=== PATIENT | male | born 1960 | race Caucasian/White ===

== ENCOUNTER 2020-04-13 05:41 | Observation (INO) ==
[2020-04-13 06:24] LABS: Basophils # 0.1 K/mcL (0.0-0.2); Basophils % 0.5 %; Eosinophils # 0.1 K/mcL (0.0-0.6); Eosinophils % 0.5 %; Hematocrit 48.9 % (37.5-50.1); Hemoglobin 15.8 g/dL (12.9-16.9); Immature Granulocytes % 0.6 % (0-4); Lymphocytes # 1.8 K/mcL (0.6-4.6); Lymphocytes % 13.9 %; Mean Corpuscular HGB Conc 32.3 g/dL (31.6-35.5); Mean Corpuscular Volume 92.8 fL (83.0-100.0); Mean Platelet Volume 9.6 fL (9.4-12.4); Monocytes # 0.6 K/mcL (0.0-1.3); Monocytes % 4.7 %; Neutrophils # 10.5 K/mcL (1.6-8.9); Platelet Count 406 K/mcL (140-400); Red Blood Count 5.27 M/mcL (4.19-5.50); Red Cell Distribution Width 15.4 % (11.5-14.5); Segmented Neutrophils % 79.8 %; White Blood Count 13.2 K/mcL (4.3-11.1)
[2020-04-13 06:46] LABS: Alanine Aminotransferase 18 Units/L (7-52); Albumin 4.1 g/dL (3.5-5.7); Albumin/Globulin Ratio 1.2 (1.1-2.2); Alkaline Phosphatase 132 Units/L (34-104); Aspartate Amino Transferase 18 Units/L (13-39); BUN/Creatinine Ratio 17 (6-26); Bilirubin,Total 0.3 mg/dL (0.3-1.0); Blood Urea Nitrogen 20 mg/dL (6-20); Calcium 9.5 mg/dL (8.6-10.3); Carbon Dioxide 23 mEq/L (23-29); Chloride 105 mEq/L (98-107); Globulin 3.5 g/dL (2.4-3.5); Glucose 184 mg/dL (70-105); Osmolality,Calculated 295 (280-300); Potassium 3.9 mEq/L (3.5-5.1); Sodium 139 mEq/L (136-145); Total Protein 7.6 g/dL (6.4-8.9); eGFR For African Americans > 60 (> 60); eGFR For Non-African Americans > 60 (> 60)
[2020-04-13 07:19] LABS: Amphetamine Screen,Urine Negative ng/mL (Cutoff=1000); Barbiturate Screen,Urine Negative ng/mL (Cutoff=200)
[2020-04-13 07:20] LABS: Benzodiazepines Screen,Urine Negative ng/mL (Cutoff=300); Cannabinoid Screen,Urine Positive ng/mL (Cutoff = 50); Cocaine Screen,Urine Negative ng/mL (Cutoff= 300); Opiate Screen,Urine Negative ng/mL (Cutoff=300); Phencyclidine Screen,Urine Negative ng/mL (Cutoff=25)
[2020-04-13 07:51] LABS: Bacteria,Urine Few per hpf (None-Few); Bilirubin,Urine Negative (Negative); Blood,Urine Large (Negative); Clarity,Urine Clear (Clear); Color,Urine Light-Yellow (Yellow); Glucose,Urine (UA) Normal (Normal); Hyaline Casts,Urine Few per lpf (None Seen); Ketones,Urine Negative (Negative); Leukocyte Esterase,Urine Negative (Negative); Mucus,Urine Few per lpf (None-Few); Nitrite,Urine Negative (Negative); Protein,Urine >=300 mg/dL (Neg-Trace); Squamous Epithelial Cell,Urine Few per hpf (None-Few); Urobilinogen,Urine Normal (Normal)
[2020-04-13] MEDS ORDERED: Naloxone 0.4 MG/ML INJ IVP PRN (10:50)
[2020-04-13] MEDS ORDERED: Ondansetron ODT 4 MG TAB.RAPDIS SL PRN (10:50)
[2020-04-13] MEDS ORDERED: *HR* LORazepam 2 MG/ML VIAL IVP PRN (10:55)
[2020-04-13 11:19] LABS: Magnesium 2.2 mg/dL (1.6-2.6); Phosphorous 1.6 mg/dL (2.7-4.5)
[2020-04-13] MEDS ORDERED: Potassium Phosphate 44 MEQ in 0.9 % Sodium Chloride 250 ML IVPB ONE (11:45)
[2020-04-13] MEDS ORDERED: levETIRAcetam 1,000 MG in 0.9 % Sodium Chloride 100 ML IVPB ONE (15:43)
[2020-04-14 02:09] LABS: Basophils % 0.4 %; Eosinophils # 0.1 K/mcL (0.0-0.6); Eosinophils % 1.2 %; Hematocrit 44.1 % (37.5-50.1); Immature Granulocytes % 0.4 % (0-4); Lymphocytes # 2.1 K/mcL (0.6-4.6); Lymphocytes % 19.6 %; Mean Corpuscular HGB Conc 31.7 g/dL (31.6-35.5); Mean Corpuscular Volume 91.3 fL (83.0-100.0); Mean Platelet Volume 9.6 fL (9.4-12.4); Monocytes # 1.1 K/mcL (0.0-1.3); Monocytes % 10.1 %; Neutrophils # 7.3 K/mcL (1.6-8.9); Platelet Count 341 K/mcL (140-400); Red Blood Count 4.83 M/mcL (4.19-5.50); Red Cell Distribution Width 15.3 % (11.5-14.5); Segmented Neutrophils % 68.3 %; White Blood Count 10.6 K/mcL (4.3-11.1)
[2020-04-14 02:24] LABS: BUN/Creatinine Ratio 16 (6-26); Blood Urea Nitrogen 16 mg/dL (6-20); Calcium 8.7 mg/dL (8.6-10.3); Carbon Dioxide 24 mEq/L (23-29); Chloride 106 mEq/L (98-107); Glucose 109 mg/dL (70-105); Osmolality,Calculated 288 (280-300); Potassium 3.9 mEq/L (3.5-5.1); Sodium 138 mEq/L (136-145); eGFR For African Americans > 60 (> 60); eGFR For Non-African Americans > 60 (> 60)
[2020-04-14 11:47] VITALS: BP 144/80
[2020-04-14] MEDS ORDERED: lisinopriL 5 MG TABLET PO SCH (12:00)
[2020-04-14] MEDS ORDERED: levETIRAcetam 250 MG TABLET PO SCH (18:00)
== END 2020-04-14 13:05 | disposition home or self-care (01) ==
LOC: EMEROOARM 05:41 → 3BNU 05:41 → SUATTDRO 08:59 → 3BNU 10:28
PROVIDERS: ADMIT Family Medicine; ATTEND Internal Medicine

== ENCOUNTER 2020-06-16 15:29 | Observation (INO) ==
[2020-06-16] MEDS ORDERED: *HR* Heparin 5,000 UNIT/ML VIAL IVP ONE (16:51)
[2020-06-16] MEDS ORDERED: *HR* Heparin 5,000 UNIT/ML VIAL IVP PRN ×2 (16:51)
[2020-06-16] MEDS ORDERED: *HR* HYDROmorphone (PF) 1 MG/ML SYRINGE IVP ONE (16:57)
[2020-06-16] MEDS ORDERED: Ondansetron ODT 4 MG TAB.RAPDIS SL PRN (17:30)
[2020-06-16] MEDS: Heparin 25,000UNIT/250ML 1/2NS 25,000 UNIT/250 ML IV.SOLN IVC SCH (17:30)
[2020-06-16] MEDS ORDERED: Naloxone 0.4 MG/ML INJ IVP PRN (17:30)
[2020-06-16 18:21] LABS: BUN/Creatinine Ratio 25 (6-26); Blood Urea Nitrogen 27 mg/dL (6-20); Calcium 9.2 mg/dL (8.6-10.3); Carbon Dioxide 25 mEq/L (23-29); Chloride 105 mEq/L (98-107); Glucose 89 mg/dL (70-105); Osmolality,Calculated 291 (280-300); Potassium 4.3 mEq/L (3.5-5.1); Sodium 138 mEq/L (136-145); eGFR For African Americans > 60 (> 60); eGFR For Non-African Americans > 60 (> 60)
[2020-06-16 18:23] LABS: Basophils # 0.1 K/mcL (0.0-0.2); Basophils % 0.6 %; Eosinophils # 0.4 K/mcL (0.0-0.6); Eosinophils % 3.5 %; Hematocrit 45.8 % (37.5-50.1); Hemoglobin 14.8 g/dL (12.9-16.9); Immature Granulocytes % 0.5 % (0-4); Lymphocytes # 2.4 K/mcL (0.6-4.6); Lymphocytes % 21.4 %; Mean Corpuscular HGB Conc 32.3 g/dL (31.6-35.5); Mean Corpuscular Hemoglobin 29.7 pg (28.0-33.3); Mean Corpuscular Volume 91.8 fL (83.0-100.0); Mean Platelet Volume 9.7 fL (9.4-12.4); Monocytes # 1.1 K/mcL (0.0-1.3); Monocytes % 9.9 %; Neutrophils # 7.1 K/mcL (1.6-8.9); Platelet Count 503 K/mcL (140-400); Red Blood Count 4.99 M/mcL (4.19-5.50); Red Cell Distribution Width 15.5 % (11.5-14.5); Segmented Neutrophils % 64.1 %; White Blood Count 11.1 K/mcL (4.3-11.1)
[2020-06-16] MEDS: *HR* OxyCODONE Immed Rel 5 MG TABLET PO PRN (19:42)
[2020-06-17] MEDS ORDERED: Acetaminophen IV 1,000 MG/100 ML BAG IVPB ONE (00:05)
[2020-06-17 01:31] LABS: Basophils # 0.1 K/mcL (0.0-0.2); Basophils % 0.5 %; Eosinophils # 0.4 K/mcL (0.0-0.6); Eosinophils % 3.9 %; Hematocrit 45.2 % (37.5-50.1); Hemoglobin 14.3 g/dL (12.9-16.9); Immature Granulocytes % 0.5 % (0-4); Lymphocytes # 2.9 K/mcL (0.6-4.6); Lymphocytes % 29.3 %; Mean Corpuscular HGB Conc 31.6 g/dL (31.6-35.5); Mean Corpuscular Hemoglobin 28.7 pg (28.0-33.3); Mean Corpuscular Volume 90.8 fL (83.0-100.0); Mean Platelet Volume 9.7 fL (9.4-12.4); Monocytes # 1.2 K/mcL (0.0-1.3); Monocytes % 11.8 %; Neutrophils # 5.4 K/mcL (1.6-8.9); Platelet Count 524 K/mcL (140-400); Red Blood Count 4.98 M/mcL (4.19-5.50); Red Cell Distribution Width 15.6 % (11.5-14.5)
[2020-06-17 01:35] LABS: BUN/Creatinine Ratio 21 (6-26); Blood Urea Nitrogen 25 mg/dL (6-20); Calcium 9.1 mg/dL (8.6-10.3); Carbon Dioxide 25 mEq/L (23-29); Chloride 104 mEq/L (98-107); Glucose 86 mg/dL (70-105); Osmolality,Calculated 290 (280-300); Potassium 4.2 mEq/L (3.5-5.1); Sodium 138 mEq/L (136-145); eGFR For African Americans > 60 (> 60); eGFR For Non-African Americans > 60 (> 60)
[2020-06-17] MEDS: *HR* OxyCODONE Immed Rel 5 MG TABLET PO PRN ×2 (02:07→09:10)
[2020-06-17] MEDS ORDERED: levETIRAcetam 250 MG TABLET PO SCH (09:00)
[2020-06-17] MEDS ORDERED: lisinopriL 5 MG TABLET PO SCH (09:00)
[2020-06-17] MEDS: Heparin 25,000UNIT/250ML 1/2NS 25,000 UNIT/250 ML IV.SOLN IVC SCH (09:11)
[2020-06-17 10:53] VITALS: BP 143/79
[2020-06-17] MEDS ORDERED: *HR* Rivaroxaban 15 MG TABLET PO ONE (12:00)
== END 2020-06-17 12:30 | disposition home or self-care (01) ==
LOC: EMEROOARM 15:29 → 2ANU 15:29
PROVIDERS: ADMIT Internal Medicine; ATTEND Internal Medicine

== ENCOUNTER 2020-06-29 18:28 | Inpatient (IN) ==
[2020-06-29] MEDS ORDERED: *HR* FentaNYL (PF) 100 MCG/2 ML VIAL IVP ONE ×2 (18:59→20:03)
[2020-06-29 19:40] LABS: Basophils # 0.1 K/mcL (0.0-0.2); Basophils % 0.5 %; Eosinophils # 0.3 K/mcL (0.0-0.6); Eosinophils % 2.4 %; Hematocrit 48.5 % (37.5-50.1); Hemoglobin 15.8 g/dL (12.9-16.9); Immature Granulocytes % 0.4 % (0-4); Lymphocytes # 2.2 K/mcL (0.6-4.6); Lymphocytes % 16.8 %; Mean Corpuscular HGB Conc 32.6 g/dL (31.6-35.5); Mean Corpuscular Hemoglobin 29.5 pg (28.0-33.3); Mean Corpuscular Volume 90.5 fL (83.0-100.0); Mean Platelet Volume 9.7 fL (9.4-12.4); Monocytes # 1.2 K/mcL (0.0-1.3); Monocytes % 9.3 %; Neutrophils # 9.3 K/mcL (1.6-8.9); Platelet Count 454 K/mcL (140-400); Red Blood Count 5.36 M/mcL (4.19-5.50); Red Cell Distribution Width 15.2 % (11.5-14.5); Segmented Neutrophils % 70.6 %; White Blood Count 13.1 K/mcL (4.3-11.1)
[2020-06-29 19:57] LABS: BUN/Creatinine Ratio 16 (6-26); Blood Urea Nitrogen 23 mg/dL (6-20); Carbon Dioxide 24 mEq/L (23-29); Chloride 99 mEq/L (98-107); Creatine Kinase 146 Units/L (30-223); Glucose 101 mg/dL (70-105); Osmolality,Calculated 284 (280-300); Potassium 4.2 mEq/L (3.5-5.1); Sodium 135 mEq/L (136-145); eGFR For African Americans > 60 (> 60); eGFR For Non-African Americans 51 (> 60)
[2020-06-29 20:00] LABS: INR 1.3; Prothrombin Time 15.1 Seconds (9.4-12.1)
[2020-06-29] MEDS ORDERED: Isovue-370 500 ML BOTTLE IVP ONE (20:24)
[2020-06-29] MEDS ORDERED: *HR* Heparin 5,000 UNIT/ML VIAL IVP PRN ×2 (21:48)
[2020-06-29] MEDS ORDERED: *HR* Heparin 5,000 UNIT/ML VIAL IVP ONE (21:48)
[2020-06-29] MEDS ORDERED: Heparin 25,000UNIT/250ML 1/2NS 25,000 UNIT/250 ML IV.SOLN IVC SCH ×2 (22:00)
[2020-06-29 22:17] LABS: Hematocrit 46.3 % (37.5-50.1); Hemoglobin 15.2 g/dL (12.9-16.9); Mean Corpuscular HGB Conc 32.8 g/dL (31.6-35.5); Mean Corpuscular Hemoglobin 29.1 pg (28.0-33.3); Mean Corpuscular Volume 88.7 fL (83.0-100.0); Mean Platelet Volume 9.5 fL (9.4-12.4); Platelet Count 431 K/mcL (140-400); Red Blood Count 5.22 M/mcL (4.19-5.50); Red Cell Distribution Width 15.3 % (11.5-14.5); White Blood Count 13.3 K/mcL (4.3-11.1)
[2020-06-29] MEDS ORDERED: Morphine Sulfate 2 MG/ML SYRINGE IVP ONE (22:29)
[2020-06-29] MEDS ORDERED: Vancomycin 1,000 MG VIAL ONE (22:35)
[2020-06-29] MEDS ORDERED: Lidocaine 1% 0 ML ONE (22:35)
[2020-06-29] MEDS ORDERED: Lidocaine 1% 20 ML MDV ONE (22:35)
[2020-06-29] MEDS ORDERED: Heparin 1,000 UNITS/500 mL 500 ML ONE (22:35)
[2020-06-29] MEDS ORDERED: Ondansetron 4 MG/2 ML VIAL ONE (22:48)
[2020-06-29] MEDS ORDERED: *HR* Succinylcholine 200 MG/10 ML VIAL IVP ONE (22:48)
[2020-06-29] MEDS ORDERED: *HR* Rocuronium Bromide 50 MG/5 ML VIAL ONE (22:48)
[2020-06-29] MEDS ORDERED: *HR* FentaNYL (PF) 100 MCG/2 ML VIAL ONE (22:48)
[2020-06-29] MEDS ORDERED: *HR* Midazolam HCl 2 MG/2 ML VIAL ONE (22:48)
[2020-06-29] MEDS ORDERED: *HR* Propofol 200 MG/20 ML VIAL IVP ONE (22:48)
[2020-06-29] MEDS ORDERED: Lidocaine -MPF 2% 2 ML VIAL ONE (22:50)
[2020-06-29] MEDS ORDERED: Ondansetron 4 MG/2 ML VIAL IVP PRN ×2 (23:22→23:56)
[2020-06-29] MEDS ORDERED: Acetaminophen 325 MG TABLET PO PRN (23:22)
[2020-06-29] MEDS ORDERED: Naloxone 0.4 MG/ML INJ IVP PRN ×2 (23:22→23:56)
[2020-06-29] MEDS ORDERED: *HR* OxyCODONE Immed Rel 5 MG TABLET PO PRN (23:27)
[2020-06-29] MEDS ORDERED: Ringers Solution, Lactated 1,000 ML IVC ONE ×3 (23:32→23:44)
[2020-06-29] MEDS ORDERED: Albuterol 2.5 MG/3 ML NEBULIZER IH PRN (23:56)
[2020-06-29] MEDS ORDERED: Nitroglycerin 0.4 MG TAB.SUBL SL PRN (23:56)
[2020-06-29] MEDS ORDERED: *HR* FentaNYL (PF) 100 MCG/2 ML VIAL IVP PRN (23:56)
[2020-06-30] MEDS ORDERED: MetroNIDAZOLE 500 MG/100 ML 500 MG/100 ML BAG IVPB SCH
[2020-06-30] MEDS ORDERED: Cefepime HCl 2,000 MG in Water for inj. (sterile) 20 ML IVP SCH
[2020-06-30] MEDS ORDERED: *HR* FentaNYL (PF) 100 MCG/2 ML VIAL ONE (00:49)
[2020-06-30] MEDS ORDERED: *HR* Heparin 5,000 UNIT/ML VIAL IVP PRN (02:58)
[2020-06-30] MEDS ORDERED: *HR* Labetalol 20 MG/4 ML SYRINGE IVP PRN (02:58)
[2020-06-30] MEDS ORDERED: Acetaminophen 325 MG TABLET PO PRN (02:58)
[2020-06-30] MEDS ORDERED: Ondansetron 4 MG/2 ML VIAL IVP PRN ×2 (02:58)
[2020-06-30] MEDS ORDERED: Naloxone 0.4 MG/ML INJ IVP PRN (02:58)
[2020-06-30] MEDS ORDERED: 0.9 % Sodium Chloride 1,000 ML IVC SCH (02:58)
[2020-06-30] MEDS ORDERED: Vancomycin 1,500 MG/265 ML IV.SOLN IVPB SCH (03:00)
[2020-06-30] MEDS: Heparin 25,000UNIT/250ML 1/2NS 25,000 UNIT/250 ML IV.SOLN IVC SCH ×2 (03:19→20:59)
[2020-06-30 04:18] LABS: Basophils % 0.2 %; Eosinophils # 0.1 K/mcL (0.0-0.6); Eosinophils % 0.3 %; Hematocrit 42.4 % (37.5-50.1); Hemoglobin 13.5 g/dL (12.9-16.9); Immature Granulocytes % 0.6 % (0-4); Lymphocytes # 1.1 K/mcL (0.6-4.6); Lymphocytes % 6.7 %; Mean Corpuscular HGB Conc 31.8 g/dL (31.6-35.5); Mean Corpuscular Hemoglobin 28.6 pg (28.0-33.3); Mean Corpuscular Volume 89.8 fL (83.0-100.0); Mean Platelet Volume 9.5 fL (9.4-12.4); Monocytes # 0.2 K/mcL (0.0-1.3); Monocytes % 1.4 %; Neutrophils # 14.7 K/mcL (1.6-8.9); Platelet Count 415 K/mcL (140-400); Red Blood Count 4.72 M/mcL (4.19-5.50); Red Cell Distribution Width 15.2 % (11.5-14.5); Segmented Neutrophils % 90.8 %; White Blood Count 16.2 K/mcL (4.3-11.1)
[2020-06-30] MEDS: *HR* Metoprolol 5 MG/5 ML VIAL IVP SCH ×3 (05:46→16:43)
[2020-06-30] MEDS: *HR* HYDROcodone/Acet 5/325 mg TABLET PO PRN ×3 (05:52→22:44)
[2020-06-30 06:20] LABS: BUN/Creatinine Ratio 15 (6-26); Blood Urea Nitrogen 20 mg/dL (6-20); Carbon Dioxide 24 mEq/L (23-29); Chloride 102 mEq/L (98-107); Glucose 130 mg/dL (70-105); Osmolality,Calculated 282 (280-300); Potassium 4.6 mEq/L (3.5-5.1); Sodium 134 mEq/L (136-145); eGFR For African Americans > 60 (> 60); eGFR For Non-African Americans 56 (> 60)
[2020-06-30] MEDS: CeFAZolin 2 GM/120 ML BAG IVPB SCH ×2 (07:31→16:41)
[2020-06-30] MEDS: Cefepime HCl 2,000 MG in Water for inj. (sterile) 20 ML IVP SCH ×2 (07:31→16:42)
[2020-06-30] MEDS: levETIRAcetam 250 MG TABLET PO SCH ×2 (07:32→19:46)
[2020-06-30] MEDS: MetroNIDAZOLE 500 MG/100 ML 500 MG/100 ML BAG IVPB SCH ×2 (07:32→16:42)
[2020-06-30] MEDS ORDERED: levETIRAcetam 250 MG TABLET PO SCH (09:00)
[2020-06-30] MEDS: lisinopriL 5 MG TABLET PO SCH (09:45)
[2020-06-30] MEDS ORDERED: Perflutren Lipid Microsphere 1.3 ML in 0.9 % Sodium Chloride 8.7 ML IVP PRN (10:47)
[2020-06-30] MEDS: *HR* OxyCODONE Immed Rel 5 MG TABLET PO PRN ×2 (12:10→19:46)
[2020-06-30] MEDS: *HR* Heparin 5,000 UNIT/ML VIAL IVP PRN (16:42)
[2020-07-01] MEDS: MetroNIDAZOLE 500 MG/100 ML 500 MG/100 ML BAG IVPB SCH ×4 (00:14→23:16)
[2020-07-01] MEDS: *HR* Metoprolol 5 MG/5 ML VIAL IVP SCH ×5 (00:15→23:16)
[2020-07-01] MEDS: Cefepime HCl 2,000 MG in Water for inj. (sterile) 20 ML IVP SCH ×4 (00:15→23:16)
[2020-07-01] MEDS: *HR* OxyCODONE Immed Rel 5 MG TABLET PO PRN ×3 (03:33→19:30)
[2020-07-01 04:34] LABS: Basophils % 0.3 %; Eosinophils # 0.1 K/mcL (0.0-0.6); Eosinophils % 0.7 %; Hematocrit 37.5 % (37.5-50.1); Hemoglobin 12.1 g/dL (12.9-16.9); Immature Granulocytes % 0.4 % (0-4); Lymphocytes # 3.2 K/mcL (0.6-4.6); Lymphocytes % 23.5 %; Mean Corpuscular HGB Conc 32.3 g/dL (31.6-35.5); Mean Corpuscular Hemoglobin 29.1 pg (28.0-33.3); Mean Corpuscular Volume 90.1 fL (83.0-100.0); Mean Platelet Volume 9.5 fL (9.4-12.4); Monocytes # 1.3 K/mcL (0.0-1.3); Monocytes % 9.8 %; Neutrophils # 8.9 K/mcL (1.6-8.9); Platelet Count 361 K/mcL (140-400); Red Blood Count 4.16 M/mcL (4.19-5.50); Red Cell Distribution Width 15.5 % (11.5-14.5); Segmented Neutrophils % 65.3 %; White Blood Count 13.6 K/mcL (4.3-11.1)
[2020-07-01 04:51] LABS: BUN/Creatinine Ratio 22 (6-26); Blood Urea Nitrogen 25 mg/dL (6-20); Calcium 8.6 mg/dL (8.6-10.3); Carbon Dioxide 24 mEq/L (23-29); Chloride 105 mEq/L (98-107); Glucose 103 mg/dL (70-105); Osmolality,Calculated 285 (280-300); Potassium 4.2 mEq/L (3.5-5.1); Sodium 135 mEq/L (136-145); eGFR For African Americans > 60 (> 60); eGFR For Non-African Americans > 60 (> 60)
[2020-07-01] MEDS: Aspirin 325 MG TABLET PO SCH (07:24)
[2020-07-01] MEDS: levETIRAcetam 250 MG TABLET PO SCH ×2 (07:24→19:29)
[2020-07-01] MEDS: lisinopriL 5 MG TABLET PO SCH (07:24)
[2020-07-01] MEDS: *HR* HYDROcodone/Acet 5/325 mg TABLET PO PRN ×2 (07:27→16:56)
[2020-07-01] MEDS: Heparin 25,000UNIT/250ML 1/2NS 25,000 UNIT/250 ML IV.SOLN IVC SCH (11:53)
[2020-07-02] MEDS: *HR* HYDROcodone/Acet 5/325 mg TABLET PO PRN ×4 (00:30→22:26)
[2020-07-02] MEDS: Heparin 25,000UNIT/250ML 1/2NS 25,000 UNIT/250 ML IV.SOLN IVC SCH ×2 (00:41→16:22)
[2020-07-02] MEDS: *HR* OxyCODONE Immed Rel 5 MG TABLET PO PRN ×3 (04:35→17:32)
[2020-07-02] MEDS: *HR* Metoprolol 5 MG/5 ML VIAL IVP SCH ×4 (05:49→23:40)
[2020-07-02] MEDS: lisinopriL 5 MG TABLET PO SCH (08:10)
[2020-07-02] MEDS: levETIRAcetam 250 MG TABLET PO SCH ×2 (08:10→22:26)
[2020-07-02] MEDS: Aspirin 325 MG TABLET PO SCH (08:10)
[2020-07-02] MEDS: Cefepime HCl 2,000 MG in Water for inj. (sterile) 20 ML IVP SCH ×3 (08:10→23:40)
[2020-07-02] MEDS: MetroNIDAZOLE 500 MG/100 ML 500 MG/100 ML BAG IVPB SCH ×3 (08:10→23:42)
[2020-07-02] MEDS ORDERED: Warfarin perPT PO PRN (18:00)
[2020-07-02] MEDS ORDERED: *HR* Warfarin 5 MG TABLET PO ONE (18:00)
[2020-07-03] MEDS: *HR* OxyCODONE Immed Rel 5 MG TABLET PO PRN ×4 (00:41→21:44)
[2020-07-03 04:11] LABS: Basophils # 0.1 K/mcL (0.0-0.2); Basophils % 0.6 %; Eosinophils # 0.4 K/mcL (0.0-0.6); Eosinophils % 3.4 %; Hematocrit 41.7 % (37.5-50.1); Hemoglobin 13.3 g/dL (12.9-16.9); Immature Granulocytes % 0.6 % (0-4); Mean Corpuscular HGB Conc 31.9 g/dL (31.6-35.5); Mean Corpuscular Volume 90.8 fL (83.0-100.0); Mean Platelet Volume 9.6 fL (9.4-12.4); Monocytes # 1.2 K/mcL (0.0-1.3); Monocytes % 9.5 %; Neutrophils # 7.7 K/mcL (1.6-8.9); Platelet Count 375 K/mcL (140-400); Red Blood Count 4.59 M/mcL (4.19-5.50); Red Cell Distribution Width 15.2 % (11.5-14.5); Segmented Neutrophils % 61.9 %; White Blood Count 12.4 K/mcL (4.3-11.1)
[2020-07-03 04:17] LABS: INR 1.1; Prothrombin Time 12.8 Seconds (9.4-12.1)
[2020-07-03 04:32] LABS: BUN/Creatinine Ratio 21 (6-26); Blood Urea Nitrogen 22 mg/dL (6-20); Calcium 9.6 mg/dL (8.6-10.3); Carbon Dioxide 24 mEq/L (23-29); Chloride 105 mEq/L (98-107); Glucose 97 mg/dL (70-105); Osmolality,Calculated 287 (280-300); Potassium 4.3 mEq/L (3.5-5.1); Sodium 137 mEq/L (136-145); eGFR For African Americans > 60 (> 60); eGFR For Non-African Americans > 60 (> 60)
[2020-07-03] MEDS: *HR* Metoprolol 5 MG/5 ML VIAL IVP SCH ×3 (04:49→16:47)
[2020-07-03] MEDS: *HR* HYDROcodone/Acet 5/325 mg TABLET PO PRN ×3 (05:28→20:16)
[2020-07-03] MEDS: Cefepime HCl 2,000 MG in Water for inj. (sterile) 20 ML IVP SCH ×2 (07:35→16:47)
[2020-07-03] MEDS: Aspirin Enteric Coated 81 MG Tablet PO SCH (07:36)
[2020-07-03] MEDS: lisinopriL 5 MG TABLET PO SCH (07:36)
[2020-07-03] MEDS: levETIRAcetam 250 MG TABLET PO SCH ×2 (07:36→20:17)
[2020-07-03] MEDS: MetroNIDAZOLE 500 MG/100 ML 500 MG/100 ML BAG IVPB SCH ×2 (07:37→16:47)
[2020-07-03] MEDS: Heparin 25,000UNIT/250ML 1/2NS 25,000 UNIT/250 ML IV.SOLN IVC SCH (09:24)
[2020-07-03] MEDS ORDERED: *HR* Warfarin 5 MG TABLET PO ONE (18:00)
[2020-07-04] MEDS: Cefepime HCl 2,000 MG in Water for inj. (sterile) 20 ML IVP SCH ×2 (00:29→08:08)
[2020-07-04] MEDS: *HR* Metoprolol 5 MG/5 ML VIAL IVP SCH ×3 (00:29→12:42)
[2020-07-04] MEDS: MetroNIDAZOLE 500 MG/100 ML 500 MG/100 ML BAG IVPB SCH ×2 (00:30→08:10)
[2020-07-04] MEDS: *HR* HYDROcodone/Acet 5/325 mg TABLET PO PRN (03:04)
[2020-07-04] MEDS: *HR* OxyCODONE Immed Rel 5 MG TABLET PO PRN ×2 (04:11→10:04)
[2020-07-04] MEDS: Heparin 25,000UNIT/250ML 1/2NS 25,000 UNIT/250 ML IV.SOLN IVC SCH (04:12)
[2020-07-04 05:03] LABS: INR 1.1; Prothrombin Time 13.1 Seconds (9.4-12.1)
[2020-07-04 05:06] LABS: Activated Partial Thrombo Time 41.7 Seconds (26.0-36.0)
[2020-07-04] MEDS: *HR* Heparin 5,000 UNIT/ML VIAL IVP PRN (06:30)
[2020-07-04] MEDS: lisinopriL 5 MG TABLET PO SCH (08:09)
[2020-07-04] MEDS: levETIRAcetam 250 MG TABLET PO SCH (08:10)
[2020-07-04] MEDS: Aspirin Enteric Coated 81 MG Tablet PO SCH (10:04)
[2020-07-04] MEDS ORDERED: *HR* Enoxaparin 120 MG/0.8 ML SYRINGE SQ SCH (11:00)
[2020-07-04 11:58] VITALS: BP 100/68
[2020-07-04] MEDS ORDERED: *HR* Warfarin 7.5 MG TABLET PO ONE (18:00)
== END 2020-07-04 16:45 | disposition home health service (06) | DRG 853 ==
LOC: EMEROOARM 18:28 → 2NNU 18:28 → SUATTDRO 23:22 → 2NNU 23:45
PROVIDERS: ADMIT Internal Medicine; ATTEND Internal Medicine

== ENCOUNTER 2020-07-13 09:10 | Inpatient (IN) ==
[~2020-07-13 09:10] MED LIST: Vancomycin 1,000 MG, Sodium Chloride IRRigation 1,000 ML IR ONE
[2020-07-13] MEDS ORDERED: CeFAZolin Syr 2,000MG/20 ML 2,000 MG/20 ML SYRINGE IVPB ONE (09:51)
[2020-07-13] MEDS ORDERED: Vancomycin 1,500 MG/265 ML IV.SOLN IVPB ONE ×2 (09:51→23:00)
[2020-07-13] MEDS ORDERED: Ringers Solution, Lactated 1,000 ML IVC SCH ×2 (10:00→10:15)
[2020-07-13] MEDS ORDERED: *HR* OxyCODONE Immed Rel 5 MG TABLET PO PRN ×2 (10:08→14:19)
[2020-07-13] MEDS ORDERED: Ondansetron 4 MG/2 ML VIAL IVP PRN ×2 (10:08→14:19)
[2020-07-13] MEDS ORDERED: Ondansetron 4 MG/2 ML VIAL ONE (10:19)
[2020-07-13] MEDS ORDERED: Lidocaine -MPF 4% 5 ML AMPUL ONE (10:19)
[2020-07-13] MEDS ORDERED: *HR* Propofol 200 MG/20 ML VIAL IVP ONE (10:19)
[2020-07-13] MEDS ORDERED: *HR* Succinylcholine 200 MG/10 ML VIAL IVP ONE (10:19)
[2020-07-13] MEDS ORDERED: Dexamethasone 4 MG/ML VIAL ONE (10:19)
[2020-07-13] MEDS ORDERED: *HR* FentaNYL (PF) 100 MCG/2 ML VIAL ONE ×3 (10:19→12:27)
[2020-07-13] MEDS ORDERED: *HR* Rocuronium Bromide 50 MG/5 ML VIAL ONE (10:19)
[2020-07-13] MEDS ORDERED: *HR* Midazolam HCl 2 MG/2 ML VIAL ONE (10:19)
[2020-07-13] MEDS ORDERED: Lidocaine -MPF 2% 2 ML VIAL ONE ×2 (10:21→11:09)
[2020-07-13] MEDS ORDERED: Albumin Human 5% 0 GM/0 ML IV.SOLN ONE (10:52)
[2020-07-13] MEDS ORDERED: *HR* Norepinephrine 4 MG/4 ML VIAL IVC ONE (10:52)
[2020-07-13] MEDS ORDERED: *HR* PHENYLEPHRINE 1,000 MCG/10 ML SYRINGE IVP ONE (11:06)
[2020-07-13] MEDS ORDERED: EPHEDrine 50 MG/ML VIAL ONE (11:06)
[2020-07-13] MEDS ORDERED: *HR* Etomidate 40 MG/20 ML VIAL IVP ONE (11:10)
[2020-07-13] MEDS ORDERED: *HR* Phenylephrine 10 MG/ML VIAL ONE (12:31)
[2020-07-13] MEDS: *HR* HYDROmorphone PF 0.5 MG/0.5 ML SYRINGE IVP PRN ×3 (13:30→13:45)
[2020-07-13] MEDS ORDERED: *HR* Labetalol 20 MG/4 ML SYRINGE IVP PRN (14:19)
[2020-07-13] MEDS ORDERED: *HR* HYDROcodone/Acet 5/325 mg TABLET PO PRN (14:19)
[2020-07-13] MEDS ORDERED: Naloxone 0.4 MG/ML INJ IVP PRN (14:19)
[2020-07-13] MEDS ORDERED: Acetaminophen 325 MG TABLET PO PRN ×2 (14:19)
[2020-07-13] MEDS ORDERED: 0.9 % Sodium Chloride 1,000 ML IVC SCH (14:19)
[2020-07-13] MEDS: Gabapentin 100 MG CAPSULE PO SCH ×2 (14:51→19:51)
[2020-07-13] MEDS: CeFAZolin 2 GM/120 ML BAG IVPB SCH (15:39)
[2020-07-13] MEDS: *HR* HYDROcodone/Acet 5/325 mg TABLET PO PRN (15:41)
[2020-07-13] MEDS: *HR* Metoprolol 5 MG/5 ML VIAL IVP SCH (17:56)
[2020-07-13] MEDS: *HR* OxyCODONE Immed Rel 5 MG TABLET PO PRN ×2 (19:50→23:01)
[2020-07-13] MEDS: levETIRAcetam 250 MG TABLET PO SCH (19:51)
[2020-07-13] MEDS ORDERED: *HR* LORazepam 0.5 MG TABLET PO ONE (22:53)
[2020-07-14] MEDS: *HR* Metoprolol 5 MG/5 ML VIAL IVP SCH ×5 (00:32→23:34)
[2020-07-14] MEDS: CeFAZolin 2 GM/120 ML BAG IVPB SCH (00:32)
[2020-07-14] MEDS: *HR* OxyCODONE Immed Rel 5 MG TABLET PO PRN ×6 (03:37→23:33)
[2020-07-14 04:24] LABS: Basophils % 0.1 %; Eosinophils % 0.1 %; Hemoglobin 11.5 g/dL (12.9-16.9); Immature Granulocytes % 0.5 % (0-4); Lymphocytes # 1.4 K/mcL (0.6-4.6); Lymphocytes % 8.3 %; Mean Corpuscular HGB Conc 32.9 g/dL (31.6-35.5); Mean Corpuscular Hemoglobin 29.1 pg (28.0-33.3); Mean Corpuscular Volume 88.6 fL (83.0-100.0); Mean Platelet Volume 9.2 fL (9.4-12.4); Monocytes # 1.5 K/mcL (0.0-1.3); Monocytes % 8.7 %; Neutrophils # 14.4 K/mcL (1.6-8.9); Platelet Count 395 K/mcL (140-400); Red Blood Count 3.95 M/mcL (4.19-5.50); Red Cell Distribution Width 15.2 % (11.5-14.5); Segmented Neutrophils % 82.3 %; White Blood Count 17.4 K/mcL (4.3-11.1)
[2020-07-14 04:42] LABS: BUN/Creatinine Ratio 21 (6-26); Blood Urea Nitrogen 19 mg/dL (6-20); Carbon Dioxide 25 mEq/L (23-29); Chloride 99 mEq/L (98-107); Glucose 143 mg/dL (70-105); Osmolality,Calculated 279 (280-300); Potassium 4.5 mEq/L (3.5-5.1); Sodium 132 mEq/L (136-145); eGFR For African Americans > 60 (> 60); eGFR For Non-African Americans > 60 (> 60)
[2020-07-14] MEDS ORDERED: *HR* Heparin 5,000 UNIT/ML VIAL SQ SCH (06:00)
[2020-07-14] MEDS: Gabapentin 100 MG CAPSULE PO SCH ×3 (07:46→19:44)
[2020-07-14] MEDS: Aspirin Enteric Coated 81 MG Tablet PO SCH (07:46)
[2020-07-14] MEDS: levETIRAcetam 250 MG TABLET PO SCH ×2 (07:47→19:44)
[2020-07-14] MEDS: lisinopriL 5 MG TABLET PO SCH (07:47)
[2020-07-15 00:48] LABS: Basophils # 0.1 K/mcL (0.0-0.2); Basophils % 0.5 %; Eosinophils # 0.3 K/mcL (0.0-0.6); Eosinophils % 2.1 %; Hematocrit 37.2 % (37.5-50.1); Hemoglobin 11.5 g/dL (12.9-16.9); Immature Granulocytes % 0.4 % (0-4); Lymphocytes # 2.9 K/mcL (0.6-4.6); Lymphocytes % 21.7 %; Mean Corpuscular HGB Conc 30.9 g/dL (31.6-35.5); Mean Corpuscular Hemoglobin 28.8 pg (28.0-33.3); Mean Corpuscular Volume 93.2 fL (83.0-100.0); Mean Platelet Volume 9.5 fL (9.4-12.4); Monocytes # 1.3 K/mcL (0.0-1.3); Monocytes % 9.7 %; Neutrophils # 8.6 K/mcL (1.6-8.9); Platelet Count 345 K/mcL (140-400); Red Blood Count 3.99 M/mcL (4.19-5.50); Red Cell Distribution Width 15.5 % (11.5-14.5); Segmented Neutrophils % 65.6 %; White Blood Count 13.2 K/mcL (4.3-11.1)
[2020-07-15 01:08] LABS: BUN/Creatinine Ratio 26 (6-26); Blood Urea Nitrogen 23 mg/dL (6-20); Calcium 9.1 mg/dL (8.6-10.3); Carbon Dioxide 26 mEq/L (23-29); Chloride 101 mEq/L (98-107); Glucose 96 mg/dL (70-105); Osmolality,Calculated 282 (280-300); Potassium 4.7 mEq/L (3.5-5.1); Sodium 134 mEq/L (136-145); eGFR For African Americans > 60 (> 60); eGFR For Non-African Americans > 60 (> 60)
[2020-07-15] MEDS: *HR* HYDROcodone/Acet 5/325 mg TABLET PO PRN ×3 (02:48→23:28)
[2020-07-15] MEDS: *HR* Metoprolol 5 MG/5 ML VIAL IVP SCH ×4 (06:03→23:29)
[2020-07-15] MEDS: *HR* OxyCODONE Immed Rel 5 MG TABLET PO PRN ×3 (06:04→19:33)
[2020-07-15] MEDS: Gabapentin 100 MG CAPSULE PO SCH ×3 (08:47→19:33)
[2020-07-15] MEDS: Aspirin Enteric Coated 81 MG Tablet PO SCH (08:47)
[2020-07-15] MEDS: levETIRAcetam 250 MG TABLET PO SCH ×2 (08:47→19:33)
[2020-07-15] MEDS: lisinopriL 5 MG TABLET PO SCH (08:48)
[2020-07-15] MEDS ORDERED: *HR* Heparin 5,000 UNIT/ML VIAL IVP PRN ×2 (12:15)
[2020-07-15] MEDS ORDERED: *HR* Heparin 5,000 UNIT/ML VIAL IVP ONE (12:15)
[2020-07-15] MEDS: Heparin 25,000UNIT/250ML 1/2NS 25,000 UNIT/250 ML IV.SOLN IVC SCH (12:59)
[2020-07-15 13:04] LABS: Hematocrit 35.4 % (37.5-50.1); Hemoglobin 11.5 g/dL (12.9-16.9); Mean Corpuscular HGB Conc 32.5 g/dL (31.6-35.5); Mean Corpuscular Hemoglobin 29.4 pg (28.0-33.3); Mean Corpuscular Volume 90.5 fL (83.0-100.0); Mean Platelet Volume 9.4 fL (9.4-12.4); Platelet Count 375 K/mcL (140-400); Red Blood Count 3.91 M/mcL (4.19-5.50); Red Cell Distribution Width 15.2 % (11.5-14.5); White Blood Count 13.3 K/mcL (4.3-11.1)
[2020-07-15 13:06] LABS: Heparin anti-factor XA UFH 0.04 IU/mL (0.30-0.70); Prothrombin Time 12.1 Seconds (9.4-12.1)
[2020-07-16] MEDS: *HR* OxyCODONE Immed Rel 5 MG TABLET PO PRN ×4 (02:12→18:02)
[2020-07-16] MEDS: *HR* HYDROcodone/Acet 5/325 mg TABLET PO PRN ×3 (06:09→19:47)
[2020-07-16] MEDS: *HR* Metoprolol 5 MG/5 ML VIAL IVP SCH ×3 (06:11→17:59)
[2020-07-16] MEDS: Heparin 25,000UNIT/250ML 1/2NS 25,000 UNIT/250 ML IV.SOLN IVC SCH (07:58)
[2020-07-16] MEDS: levETIRAcetam 250 MG TABLET PO SCH ×2 (08:01→19:46)
[2020-07-16] MEDS: lisinopriL 5 MG TABLET PO SCH (08:01)
[2020-07-16] MEDS: Aspirin Enteric Coated 81 MG Tablet PO SCH (08:01)
[2020-07-16] MEDS: Gabapentin 100 MG CAPSULE PO SCH (08:01)
[2020-07-16] MEDS: *HR* Enoxaparin 100 MG/ML SYRINGE SQ SCH (12:44)
[2020-07-16 14:15] LABS: INR 1.1; Prothrombin Time 12.2 Seconds (9.4-12.1)
[2020-07-16] MEDS: Gabapentin 300 MG CAPSULE PO SCH ×2 (15:44→19:47)
[2020-07-16] MEDS ORDERED: *HR* Warfarin 7.5 MG TABLET PO ONE (18:00)
[2020-07-16] MEDS ORDERED: Warfarin perPT PO PRN (18:00)
[2020-07-17] MEDS: *HR* Metoprolol 5 MG/5 ML VIAL IVP SCH ×4 (00:20→17:31)
[2020-07-17] MEDS: *HR* OxyCODONE Immed Rel 5 MG TABLET PO PRN ×3 (01:41→20:12)
[2020-07-17 04:48] LABS: Hematocrit 34.7 % (37.5-50.1); Hemoglobin 11.1 g/dL (12.9-16.9); Mean Corpuscular Hemoglobin 29.4 pg (28.0-33.3); Mean Corpuscular Volume 91.8 fL (83.0-100.0); Mean Platelet Volume 9.5 fL (9.4-12.4); Platelet Count 252 K/mcL (140-400); Red Blood Count 3.78 M/mcL (4.19-5.50); White Blood Count 12.1 K/mcL (4.3-11.1)
[2020-07-17 04:55] LABS: Prothrombin Time 11.6 Seconds (9.4-12.1)
[2020-07-17 05:05] LABS: BUN/Creatinine Ratio 25 (6-26); Blood Urea Nitrogen 23 mg/dL (6-20); Calcium 9.2 mg/dL (8.6-10.3); Carbon Dioxide 26 mEq/L (23-29); Chloride 100 mEq/L (98-107); Glucose 110 mg/dL (70-105); Osmolality,Calculated 280 (280-300); Potassium 4.3 mEq/L (3.5-5.1); Sodium 133 mEq/L (136-145); eGFR For African Americans > 60 (> 60); eGFR For Non-African Americans > 60 (> 60)
[2020-07-17] MEDS: *HR* HYDROcodone/Acet 5/325 mg TABLET PO PRN ×2 (06:25→15:45)
[2020-07-17] MEDS: *HR* Enoxaparin 100 MG/ML SYRINGE SQ SCH ×2 (06:25→17:32)
[2020-07-17] MEDS: levETIRAcetam 250 MG TABLET PO SCH ×2 (08:13→20:12)
[2020-07-17] MEDS: lisinopriL 5 MG TABLET PO SCH (08:13)
[2020-07-17] MEDS: Aspirin Enteric Coated 81 MG Tablet PO SCH (08:14)
[2020-07-17] MEDS: Gabapentin 300 MG CAPSULE PO SCH ×3 (08:14→20:12)
[2020-07-17] MEDS ORDERED: *HR* Warfarin 7.5 MG TABLET PO ONE (18:00)
[2020-07-18 01:52] LABS: INR 1.1; Prothrombin Time 12.5 Seconds (9.4-12.1)
[2020-07-18] MEDS: *HR* Metoprolol 5 MG/5 ML VIAL IVP SCH ×4 (02:11→17:26)
[2020-07-18] MEDS: *HR* OxyCODONE Immed Rel 5 MG TABLET PO PRN ×4 (02:11→21:31)
[2020-07-18] MEDS: *HR* Enoxaparin 100 MG/ML SYRINGE SQ SCH ×2 (05:55→17:27)
[2020-07-18] MEDS: lisinopriL 5 MG TABLET PO SCH (08:53)
[2020-07-18] MEDS: levETIRAcetam 250 MG TABLET PO SCH ×2 (08:53→21:30)
[2020-07-18] MEDS: Aspirin Enteric Coated 81 MG Tablet PO SCH (08:53)
[2020-07-18] MEDS: Gabapentin 300 MG CAPSULE PO SCH ×3 (08:54→21:30)
[2020-07-18] MEDS ORDERED: *HR* Warfarin 7.5 MG TABLET PO ONE (18:00)
[2020-07-19] MEDS: *HR* Metoprolol 5 MG/5 ML VIAL IVP SCH ×3 (00:35→12:09)
[2020-07-19] MEDS: *HR* HYDROcodone/Acet 5/325 mg TABLET PO PRN ×2 (00:37→05:25)
[2020-07-19 01:47] LABS: INR 1.1; Prothrombin Time 12.8 Seconds (9.4-12.1)
[2020-07-19] MEDS: *HR* OxyCODONE Immed Rel 5 MG TABLET PO PRN ×2 (01:50→07:58)
[2020-07-19] MEDS: *HR* Enoxaparin 100 MG/ML SYRINGE SQ SCH (05:25)
[2020-07-19] MEDS: Aspirin Enteric Coated 81 MG Tablet PO SCH (08:47)
[2020-07-19] MEDS: levETIRAcetam 250 MG TABLET PO SCH (08:47)
[2020-07-19] MEDS: Gabapentin 300 MG CAPSULE PO SCH ×2 (08:47→13:59)
[2020-07-19] MEDS: lisinopriL 5 MG TABLET PO SCH (08:47)
[2020-07-19 10:57] VITALS: BP 110/74
[2020-07-19] MEDS ORDERED: *HR* Warfarin 10 MG TABLET PO ONE (14:00)
== END 2020-07-19 14:58 | disposition home health service (06) | DRG 240 ==
LOC: SAMDAY 09:10 → 2NNU 14:18
PROVIDERS: ADMIT Surgery; ATTEND Surgery

== ENCOUNTER 2020-12-20 21:56 | Inpatient (IN) ==
[2020-12-20] MEDS ORDERED: *HR* LORazepam 2 MG/ML VIAL IM ONE (22:00)
[2020-12-20] MEDS ORDERED: *HR* LORazepam 2 MG/ML VIAL ONE ×2 (22:03→22:17)
[2020-12-20] MEDS ORDERED: Haloperidol Lactate 5 MG/ML VIAL ONE (22:05)
[2020-12-20] MEDS: Haloperidol Lactate 5 MG/ML VIAL IVP SCH ×2 (22:06→22:09)
[2020-12-20] MEDS ORDERED: Isovue-370 500 ML BOTTLE IVP ONE ×2 (22:30)
[2020-12-20] MEDS ORDERED: Haloperidol Lactate 5 MG/ML VIAL IVP PRN (22:30)
[2020-12-20] MEDS ORDERED: *HR* LORazepam 2 MG/ML VIAL IVP ONE (22:30)
[2020-12-20 23:20] LABS: Eosinophils # 0.4 K/mcL (0.0-0.6); Hematocrit 53.4 % (37.5-50.1); Hemoglobin 16.4 g/dL (12.9-16.9); Mean Corpuscular HGB Conc 30.7 g/dL (31.6-35.5); Mean Corpuscular Hemoglobin 28.1 pg (28.0-33.3); Mean Corpuscular Volume 91.6 fL (83.0-100.0); Mean Platelet Volume 10.1 fL (9.4-12.4); Platelet Count 525 K/mcL (140-400); Red Blood Count 5.83 M/mcL (4.19-5.50); Red Cell Distribution Width 17.1 % (11.5-14.5); White Blood Count 21.8 K/mcL (4.3-11.1)
[2020-12-20 23:41] LABS: Lymphocytes # 3.9 K/mcL (0.6-4.6); Monocytes # 1.3 K/mcL (0.0-1.3); Neutrophils # 16.1 K/mcL (1.6-8.9); Platelet Estimate Increased (Normal)
[2020-12-20 23:45] LABS: INR 1.5; Prothrombin Time 16.6 Seconds (9.4-12.1)
[2020-12-20] MEDS ORDERED: 0.9 % Sodium Chloride 1,000 ML ONE (23:55)
[2020-12-20 23:59] LABS: Acetaminophen < 10 mcg/mL (10-20); Alanine Aminotransferase 21 Units/L (7-52); Albumin 4.1 g/dL (3.5-5.7); Albumin/Globulin Ratio 1.1 (1.1-2.2); Alkaline Phosphatase 153 Units/L (34-104); Aspartate Amino Transferase 20 Units/L (13-39); BUN/Creatinine Ratio 15 (6-26); Bilirubin,Direct 0.1 mg/dL (0.0-0.2); Bilirubin,Indirect 0.3 mg/dL (0.0-1.0); Bilirubin,Total 0.4 mg/dL (0.3-1.0); Blood Urea Nitrogen 21 mg/dL (6-20); Calcium 9.3 mg/dL (8.6-10.3); Carbon Dioxide 20 mEq/L (23-29); Chloride 104 mEq/L (98-107); Creatine Kinase 177 Units/L (30-223); Globulin 3.7 g/dL (2.4-3.5); Glucose 201 mg/dL (70-105); Lipase 50 Units/L (11-82); Osmolality,Calculated 297 (280-300); Potassium 3.8 mEq/L (3.5-5.1); Salicylate < 2.5 mg/dL (15.0-30.0); Sodium 139 mEq/L (136-145); Total Protein 7.8 g/dL (6.4-8.9); eGFR For African Americans > 60 (> 60); eGFR For Non-African Americans 53 (> 60)
[2020-12-21] MEDS ORDERED: 0.9 % Sodium Chloride 1,000 ML IVC ONE ×2 (00:01→00:03)
[2020-12-21] MEDS ORDERED: Vancomycin 2,000 MG/520 ML IV.SOLN IVPB ONE (00:03)
[2020-12-21] MEDS ORDERED: Piperacillin/Tazobactam 3.375 GM in 0.9 % Sodium Chloride Mini Bag 100 ML IVPB ONE (00:03)
[2020-12-21 01:13] LABS: Bilirubin,Urine Negative (Negative); Blood,Urine Moderate (Negative); Clarity,Urine Clear (Clear); Color,Urine Light-Yellow (Yellow); Glucose,Urine (UA) Normal (Normal); Ketones,Urine Negative (Negative); Leukocyte Esterase,Urine Negative (Negative); Nitrite,Urine Negative (Negative); Protein,Urine 100 mg/dL (Neg-Trace); Specific Gravity,Urine > 1.030 (1.010-1.025); Urobilinogen,Urine Normal (Normal)
[2020-12-21 01:14] LABS: Bacteria,Urine Few per hpf (None-Few); Mucus,Urine Few per lpf (None-Few); RBC,Urine 30-50 per hpf (0-3); WBC,Urine 0-3 per hpf (0-3)
[2020-12-21 01:24] LABS: Amphetamine Screen,Urine Negative ng/mL (Cutoff=1000); Barbiturate Screen,Urine Negative ng/mL (Cutoff=200); Benzodiazepines Screen,Urine Positive ng/mL (Cutoff=200); Cannabinoid Screen,Urine Positive ng/mL (Cutoff = 50); Cocaine Screen,Urine Positive ng/mL (Cutoff= 300); Opiate Screen,Urine Negative ng/mL (Cutoff=300); Phencyclidine Screen,Urine Negative ng/mL (Cutoff=25)
[2020-12-21 02:43] LABS: Troponin I 0.07 ng/mL (< 0.04)
[2020-12-21] MEDS ORDERED: Naloxone 0.4 MG/ML INJ IVP PRN ×2 (02:59→13:06)
[2020-12-21] MEDS ORDERED: Ondansetron 4 MG/2 ML VIAL IVP PRN ×2 (02:59→13:06)
[2020-12-21] MEDS ORDERED: 0.9 % Sodium Chloride 1,000 ML IVC SCH (03:00)
[2020-12-21] MEDS ORDERED: *HR* Heparin 5,000 UNIT/ML VIAL IVP PRN ×4 (03:51→13:06)
[2020-12-21] MEDS ORDERED: *HR* Heparin 5,000 UNIT/ML VIAL IVP ONE (03:51)
[2020-12-21] MEDS ORDERED: Heparin 25,000UNIT/250ML 1/2NS 25,000 UNIT/250 ML IV.SOLN IVC SCH ×2 (04:00→13:06)
[2020-12-21 04:23] LABS: Heparin anti-factor XA UFH 0.66 IU/mL (0.30-0.70); INR 1.3; Prothrombin Time 14.9 Seconds (9.4-12.1)
[2020-12-21 05:26] LABS: Mean Corpuscular HGB Conc 30.9 g/dL (31.6-35.5); Mean Corpuscular Hemoglobin 27.9 pg (28.0-33.3); Mean Corpuscular Volume 90.2 fL (83.0-100.0); Mean Platelet Volume 9.4 fL (9.4-12.4); Platelet Count 362 K/mcL (140-400); Red Blood Count 4.99 M/mcL (4.19-5.50); Red Cell Distribution Width 16.6 % (11.5-14.5)
[2020-12-21 05:36] LABS: Hemoglobin 13.9 g/dL (12.9-16.9)
[2020-12-21 05:59] LABS: BUN/Creatinine Ratio 17 (6-26); Blood Urea Nitrogen 21 mg/dL (6-20); Calcium 8.4 mg/dL (8.6-10.3); Carbon Dioxide 22 mEq/L (23-29); Chloride 112 mEq/L (98-107); Glucose 120 mg/dL (70-105); Osmolality,Calculated 292 (280-300); Potassium 4.8 mEq/L (3.5-5.1); Sodium 139 mEq/L (136-145); Troponin I 0.16 ng/mL (< 0.04); eGFR For African Americans > 60 (> 60); eGFR For Non-African Americans > 60 (> 60)
[2020-12-21] MEDS ORDERED: Perflutren Lipid Microsphere 1.3 ML in 0.9 % Sodium Chloride 8.7 ML IVP PRN (06:26)
[2020-12-21] MEDS ORDERED: Regadenoson 0.4 MG/5 ML SYRINGE IVP ONE (10:29)
[2020-12-21] MEDS ORDERED: Aspirin 325 MG TABLET PO SCH (11:00)
[2020-12-21] MEDS ORDERED: Isovue-370 500 ML BOTTLE IVP ONE (13:06)
[2020-12-21] MEDS ORDERED: *HR* OxyCODONE/APAP 5/325 TABLET PO PRN (13:06)
[2020-12-21] MEDS: Gabapentin 100 MG CAPSULE PO SCH ×2 (14:55→20:33)
[2020-12-21] MEDS: levETIRAcetam 250 MG TABLET PO SCH (20:33)
[2020-12-22] MEDS ORDERED: Heparin 25,000UNIT/250ML 1/2NS 25,000 UNIT/250 ML IV.SOLN IVC SCH (01:30)
[2020-12-22 03:50] VITALS: PULSE 67; TEMP 97.6; O2SAT 93
[2020-12-22 05:51] LABS: Hematocrit 44.5 % (37.5-50.1); Hemoglobin 13.8 g/dL (12.9-16.9); Mean Corpuscular Hemoglobin 27.6 pg (28.0-33.3); Mean Platelet Volume 9.9 fL (9.4-12.4); Platelet Count 370 K/mcL (140-400); Red Cell Distribution Width 16.7 % (11.5-14.5); White Blood Count 10.3 K/mcL (4.3-11.1)
[2020-12-22 06:11] LABS: BUN/Creatinine Ratio 20 (6-26); Blood Urea Nitrogen 21 mg/dL (6-20); Calcium 8.7 mg/dL (8.6-10.3); Carbon Dioxide 23 mEq/L (23-29); Chloride 109 mEq/L (98-107); Chol/HDL Ratio 6.4 (0-4.9); Cholesterol 186 mg/dL (< 200); Glucose 93 mg/dL (70-105); HDL Cholesterol 29 mg/dL (40-59); LDL Cholesterol,Calculated 130 mg/dL (< 100); Osmolality,Calculated 289 (280-300); Potassium 4.1 mEq/L (3.5-5.1); Sodium 138 mEq/L (136-145); Triglycerides 134 mg/dL (< 150); eGFR For African Americans > 60 (> 60); eGFR For Non-African Americans > 60 (> 60)
[2020-12-22 07:05] VITALS: BP 159/85
[2020-12-22] MEDS ORDERED: Aspirin 325 MG TABLET PO SCH (09:00)
[2020-12-22] MEDS: levETIRAcetam 250 MG TABLET PO SCH (09:14)
[2020-12-22] MEDS: Gabapentin 100 MG CAPSULE PO SCH (09:14)
== END 2020-12-22 10:06 | disposition left against medical advice (07) | DRG 816 ==
LOC: 2NENU 21:56 → EMEROOARM 21:56 → ICNU 12-21 03:46 → SUATTDRO 12-21 06:11 → 3BNU 12-21 17:05
PROVIDERS: ADMIT Student in an Organized Health Care Education/Training Program; ATTEND Internal Medicine